=== PATIENT | female | born 1945 | race Caucasian/White ===

== ENCOUNTER 2022-01-21 07:12 | Day surgery (SDC) | payer OTHER, SELFPAY ==
[~2022-01-21] VITALS: Ht 165.1 cm; Wt 73.5 kg
[2022-01-21] MEDS ORDERED: NS 250 ML BAG IV ONE (12:10)
[2022-01-21] MEDS ORDERED: BENZOCAINE 20% GEL 32 GM BOTTLE MM ONE (12:10)
[2022-01-21] MEDS ORDERED: ARTICAINE HCL/EPINEPHRINE 4%/1:200,000 BIT 1.7 ML CARTRIDGE IJ ONE (12:10)
[2022-01-21] MEDS ORDERED: NS IRRIG SOLN 1000 ML IR ONE (12:10)
[2022-01-21 15:38] VITALS: BP_SYST 157
== END 2022-01-21 12:15 | disposition home or self-care (01) ==
LOC: SDS 07:12 → EDBD 07:12 → SDS 12:15
PROVIDERS: ATTEND Dentist General Practice
DX: M27.2 Inflammatory conditions of jaws (principal); I25.10 Atherosclerotic heart disease of native coronary artery without angina pectoris; E11.9 Type 2 diabetes mellitus without complications; K21.9 Gastro-esophageal reflux disease without esophagitis; E78.5 Hyperlipidemia, unspecified; Z79.899 Other long term (current) drug therapy; Z20.822 Contact with and (suspected) exposure to COVID-19
CPT/HCPCS: 21026; 21215; 21248; 36415; 70140; 82962; 87426; C1713 ×2; J7050